=== PATIENT | male | born 1970 | race African-American/Black ===

== ENCOUNTER 2021-05-23 09:38 | Day surgery (SDC) | payer OTHER ==
[~2021-05-23] VITALS: Ht 182.9 cm; Wt 149.7 kg
[~2021-05-23 09:38] MED LIST: MEDDOSEPAK PO; METOPROL TAR25 MG PO; PERCOCET 10/31 COMBO PO; SILDENAFIL IJ; SM ASPIRIN81 MG PO; VITAMIN D2400 UNIT PO; ZESTRIL10 M1 PO
[2021-05-23 11:52] VITALS: BP 117/73
== END 2021-05-23 11:48 | disposition home or self-care (01) ==
LOC: ENDO 09:38
PROVIDERS: ATTEND Surgery
DX: Z12.11 Encounter for screening for malignant neoplasm of colon (principal); D12.0 Benign neoplasm of cecum; D12.3 Benign neoplasm of transverse colon; I10 Essential (primary) hypertension